=== PATIENT | female | born 1945 | race Caucasian/White ===

== ENCOUNTER 2022-06-09 05:23 | Inpatient (IN) | payer OTHER ==
[2022-06-05 17:52] LABS: APPEARANCE,SPUN,BODY FLUID CLEAR (CLEAR); BF APPEARANCE UNSPUN HAZY (CLEAR); BODY FLUID COLOR PINK (LT YELLOW); BODY FLUID TOTAL VOLUME 40 mL; LYMPHOCYTES, BODY FLUID 53 %; NEUTROPHIL, BODY FLUID 47 %; RBC, BODY FLUID 2261 /uL; SOURCE/TYPE ,BODY FLUID SYNOVIAL; WBC, BODY FLUID 266 /uL
[2022-06-05 17:53] LABS: BODY FLUID CRYSTALS NO CRYSTALS SEEN (None Seen)
[~2022-06-09] VITALS: Ht 149.9 cm; Wt 66.7 kg
[2022-06-09] MEDS ORDERED: CEFAZOLIN SOD 2 GM in D5W 50 ML IV ONE (07:00)
[2022-06-09] MEDS ORDERED: ACETAMINOPHEN I.V. 1000 MG 100 ML IV ONE (07:42)
[2022-06-09] MEDS ORDERED: HYDROmorphone 2 MG/ML VIAL IVP PRN (08:00)
[2022-06-09] MEDS ORDERED: HYDROmorphone 1 MG/ML INJ. CARTRIDGE IVP PRN ×4 (08:00→11:00)
[2022-06-09] MEDS ORDERED: ONDANSETRON HCL 4 MG/2 ML VIAL IVP PRN ×2 (08:00→11:45)
[2022-06-09] MEDS ORDERED: ETOD400T2 PO (09:00)
[2022-06-09] MEDS ORDERED: HYDR500C2 PO (09:00)
[2022-06-09] MEDS ORDERED: NEU300 PO (09:00)
[2022-06-09] MEDS ORDERED: ASPI-1393 PO (09:00)
[2022-06-09] MEDS ORDERED: LOVA20TA2 PO (09:00)
[2022-06-09] MEDS ORDERED: BETA1TAB20 PO (09:00)
[2022-06-09] MEDS ORDERED: VALS80TA2 PO (09:00)
[2022-06-09] MEDS ORDERED: BUPIVACAINE LIPOSOME/PF 266 MG/20 ML VIAL INFIL ONE (10:49)
[2022-06-09] MEDS ORDERED: LORATADINE 10 MG TABLET PO PRN (11:00)
[2022-06-09] MEDS ORDERED: oxyCODONE HCL 5 MG TABLET PO PRN ×2 (11:00)
[2022-06-09] MEDS ORDERED: traMADol HCL HCL 50 MG TABLET (ULTRAM) PO PRN (11:00)
[2022-06-09] MEDS ORDERED: ROCURONIUM BROMIDE 10 MG/ML (ZEMURON) ONE (11:44)
[2022-06-09] MEDS ORDERED: WATER FOR IRRIGATION,STERILE 1,000 ML IRRIG.SOLN IR ONE (11:44)
[2022-06-09] MEDS ORDERED: VANCOMYCIN HCL 1000 MG/VIAL IV ONE (11:44)
[2022-06-09] MEDS ORDERED: fentaNYL CITRATE/PF 100 MCG/2 ML AMP ONE (11:44)
[2022-06-09] MEDS ORDERED: ONDANSETRON HCL 4 MG/2 ML VIAL ONE (11:44)
[2022-06-09] MEDS ORDERED: TRANEXAMIC ACID 1,000 MG/10 ML VIAL ONE (11:44)
[2022-06-09] MEDS ORDERED: PROPOFOL 200MG/ 20ML VIAL (DIPRIVAN) IV ONE (11:44)
[2022-06-09] MEDS ORDERED: LR 1,000 ML IV.SOLN IV ONE (11:44)
[2022-06-09] MEDS ORDERED: NS 1000 ML IV.SOLN IV ONE (11:44)
[2022-06-09] MEDS ORDERED: DEXAMETHASONE SOD PHOSPHATE 4 MG/ML VIAL ONE (11:44)
[2022-06-09] MEDS ORDERED: SUCCINYLCHOLINE CHLORIDE 20 MG/ML(QUELICIN) ONE (11:44)
[2022-06-09] MEDS ORDERED: KETOROLAC TROMETHAMINE 30 MG VIAL ONE (11:44)
[2022-06-09] MEDS ORDERED: DESFLURANE 15 MIN GAS INH ONE (11:44)
[2022-06-09] MEDS ORDERED: LABETALOL 100 MG/ 20ML VIAL ONE (11:44)
[2022-06-09] MEDS ORDERED: NS IRRIG SOLN 1000 ML IR ONE (11:44)
[2022-06-09] MEDS ORDERED: METOCLOPRAMIDE HCL 10 MG/2 ML VIAL ONE (11:44)
[2022-06-09] MEDS ORDERED: HYDROmorphone 2 MG/ML VIAL ONE (11:44)
[2022-06-09] MEDS ORDERED: hydrALAZINE HCL 20 MG/ML VIAL ONE (11:44)
[2022-06-09] MEDS ORDERED: NS 100 ML BAG ONE (11:44)
[2022-06-09] MEDS ORDERED: LACTULOSE 20 GM/30 ML UDC PO PRN (11:45)
[2022-06-09] MEDS ORDERED: BISACODYL 10 MG/SUPPOSITORY RC PRN (11:45)
[2022-06-09] MEDS ORDERED: NALOXONE HCL 0.4 MG/ML AMP (NARCAN) IVP PRN ×3 (11:45)
[2022-06-09] MEDS ORDERED: METOCLOPRAMIDE HCL 10 MG/2 ML VIAL IVP PRN (11:45)
[2022-06-09] MEDS ORDERED: DIPHENHYDRAMINE HCL 25 MG CAPSULE PO PRN (11:45)
[2022-06-09] MEDS: KETOROLAC TROMETHAMINE 10 MG TABLET (TORADOL) PO SCH ×2 (14:00→23:25)
[2022-06-09] MEDS: ACETAMINOPHEN 500 MG TABLET PO SCH ×2 (14:00→23:24)
--- NOTE | 2022-06-09 15:17 | NUR ---
Admission Note Received patient from PACU sp left knee arthroplasty. AAOx4. bp124/78, hr67, t97.8, rr 18 O2 sat 98% room air. Polar pack in plcae, left heal elevated on 1 pillow. denies pain at this time. instructed use od incentive spirometer. Initial Plan of Care discussed-patient verbalized understanding.Oriented to room, call light, pain management and safety.
[2022-06-09 15:42] VITALS: BP_SYST 141
[2022-06-09] MEDS: ceFAZolin SODIUM 2 GM in D5W 50 ML IV SCH (17:16)
[2022-06-09 19:35] VITALS: BP_SYST 131
--- NOTE | 2022-06-09 19:42 | NUR ---
ROUNDS LATE ENTRY DUE TO PT CARE 1700- PHYSICAL THERAPIST AT THE BEDSIDE. AMBULATED 10 FEET. 1800- PATIENT COMFORTABLE AT THIS TIME 1920- BEDSIDE REPORT GIVEN TO VENESSA BARRON
[2022-06-09] MEDS: GABAPENTIN 300 MG CAPSULE PO SCH (21:02)
[2022-06-09] MEDS: HYDROmorphone 1 MG/ML INJ. CARTRIDGE IVP PRN (21:02)
[2022-06-09] MEDS: SENNOSIDES/DOCUSATE SODIUM 1 TAB TABLET(SENOKOT-S) PO SCH (21:02)
[2022-06-10] VITALS: BP_SYST 128
[2022-06-10] MEDS: HYDROmorphone 1 MG/ML INJ. CARTRIDGE IVP PRN (00:51)
[2022-06-10] MEDS: ceFAZolin SODIUM 2 GM in D5W 50 ML IV SCH ×2 (00:57→10:42)
[2022-06-10] MEDS: KETOROLAC TROMETHAMINE 10 MG TABLET (TORADOL) PO SCH (06:05)
[2022-06-10] MEDS: ACETAMINOPHEN 500 MG TABLET PO SCH ×2 (06:05→14:57)
[2022-06-10 07:43] LABS: BASOPHILS % (AUTO) 0.3 % (0.0-2.0); EOSINOPHILS % (AUTO) 0.6 % (0.0-4.0); HEMATOCRIT 24.8 % (36-48); HEMOGLOBIN 8.6 g/dL (12.0-16.0); LYMPHOCYTES # (AUTO) 0.9 K/uL (1.0-5.5); LYMPHOCYTES % (AUTO) 15.1 % (20.5-51.5); MEAN CORPUSCULAR HEMOGLOBIN 41 pg (27-31); MEAN CORPUSCULAR HGB CONC 35 % (32-36); MEAN CORPUSCULAR VOLUME 119 fL (79.0-98.0); MONOCYTES # (AUTO) 0.5 K/uL (0.0-1.0); MONOCYTES % (AUTO) 8.2 % (1.7-9.3); NEUTROPHILS # (AUTO) 4.5 K/uL (1.8-7.7); NEUTROPHILS % (AUTO) 75.8 % (40.0-70.0); PLATELET COUNT (AUTO) 380 K/uL (130-430); RED BLOOD CELL COUNT(AUTO) 2.09 MIL/uL (4.2-6.2); RED CELL DISTRIBUTION WIDTH 13.5 % (9.0-15.0); WHITE BLOOD COUNT (AUTO) 5.9 K/uL (4.8-10.8)
[2022-06-10 07:55] LABS: ALANINE AMINOTRANSFERASE 18 U/L (12-78); ALBUMIN 2.6 g/dL (3.4-4.8); ANION GAP 7 (5-15); ASPARTATE AMINOTRANSFERASE 26 U/L (10-37); CALCIUM 8.3 mg/dL (8.4-11.0); CHLORIDE 106 mmol/L (98-107); GLUCOSE 88 mg/dL (70-99); TOTAL BILIRUBIN 0.4 mg/dL (0.0-1.0); UREA NITROGEN, BLOOD 14 mg/dL (8-21)
[2022-06-10] MEDS ORDERED: APIX2.5T PO (08:23)
[2022-06-10] MEDS ORDERED: APIXABAN 2.5 MG TABLET PO SCH (09:00)
[2022-06-10] MEDS ORDERED: ATORVASTATIN 10 MG TABLET PO SCH (09:00)
[2022-06-10] MEDS ORDERED: LOSARTAN POTASSIUM 25 MG TABLET PO SCH (09:00)
[2022-06-10 09:24] VITALS: BP_SYST 131
[2022-06-10 09:27] VITALS: BP_SYST 129
[2022-06-10] MEDS: GABAPENTIN 300 MG CAPSULE PO SCH (10:14)
[2022-06-10] MEDS: SENNOSIDES/DOCUSATE SODIUM 1 TAB TABLET(SENOKOT-S) PO SCH (10:21)
[2022-06-10] MEDS ORDERED: CELECOXIB 200 MG CAPSULE PO SCH (11:00)
--- NOTE | 2022-06-10 14:20 | NUR ---
HCP/HOME HEALTH Spoke with Fredrick Blocker And Polisher from [facility] [phone] and informed him of the order for Home Health for Physical Therapy. He stated okay to send pt home once the MD Order is faxed to [facility] per Gael customer service manager here at [facility]. He stated home health will follow up with pt in 48 hours.
--- NOTE | 2022-06-10 15:24 | NUR ---
PHYSICAL THERAPY CO-SIGN The Physical Therapy Progress Notes documented by Technology Risk Intern have been reviewed. Reviewed/Co-Signed by: Neftaly Pierre Documentation Done by:NISHA WATERMAN Addendum: 06/10/22 at 1524 by Neftaly Pierre PT Amended: Links added.
--- NOTE | 2022-06-10 15:30 | NUR ---
CM: reveived call from roya/Jus # [phone], c/o unable to get in touch with CM at [facility] since this am. Pt. is dc home with FWW a which Breezy, yesterday CM said , would get one sent to the room, and home health /PT info. So far , he has not received any info. I called the after hour # and spoke with Aixa, managed care manager/[facility] # [phone] , informed of the issues above. Said the home health is arranged with # [phone], FWW provided from [facility] and [facility] will replace it by today . The FWW order faxed to #[phone] igor Tang Addendum: 06/10/22 at 1555 by Alexis Fitzgerald RN Correct phone # Domenica # [phone], I informed set up and FWW is at bedside. Son does not want to wait for [facility] to deliver FWW late this pm. Addendum: 06/10/22 at 1622 by Alexis Fitzgerald RN Called back from [facility]# [phone]: the DME co is trying to meet the delivery time by 6 pm. Otherwise, they will delivery the FWW to director [facility] dept on Monday 06/12.
[2022-06-10 16:30] VITALS: BP_SYST 122
--- NOTE | 2022-06-10 17:19 | NUR ---
D/C Patient Patient given medication reconciliation form and D/C instructions. Exit Care provided. Patient verbalized understanding. MD discussed with patient the results and treatment provided. Patient in stable condition, ID band removed. IV catheter removed, intact and dressing applied, no active bleeding. Patient educated on pain management. All belongings sent with patient. Patient left with FWW. Patient left floor via wheelchair to private vehicle in no distress.
--- NOTE | 2022-06-22 13:53 | NUR ---
Store Team Leader HOISTING ENGINE OPERATOR made a post discharge follow up phone call to pt., but spoke to son Jus who stated his mom Torri is doing well. She was discharged on 06/10 but due to fainting at home the morning of 06/11 was taken via ambulance to [facility] for one day. Family left not knowing what her Dx. was. Jus stated he was so happy with the staff at [facility] and Dr. Hickey and his associate and thanked HOISTING ENGINE OPERATOR. Torri is getting home PT and will be getting outpt. PT , has had a follow up apt. with Dr. Hickey and will have a follow up apt. with her PCP.
== END 2022-06-10 17:15 | disposition home health service (06) | DRG 467 ==
LOC: SDS 05:23 → SMU 05:24 → EDSTATUS 07:30 → SDS 07:35 → SMU 15:35
PROVIDERS: ADMIT Student in an Organized Health Care Education/Training Program; ATTEND Student in an Organized Health Care Education/Training Program
PROC: 0SRD0J9 Replacement of Left Knee Joint with Synthetic Substitute, Cemented, Open Approach (ICD-10-PCS; 2022-06-09)
PROC: 0QBH0ZZ Excision of Left Tibia, Open Approach (ICD-10-PCS; 2022-06-09)
PROC: 0SPD0JZ Removal of Synthetic Substitute from Left Knee Joint, Open Approach (ICD-10-PCS; principal; 2022-06-09 07:51)
DX: T84.093A Other mechanical complication of internal left knee prosthesis, initial encounter (principal); E44.1 Mild protein-calorie malnutrition; Y83.8 Other surgical procedures as the cause of abnormal reaction of the patient, or of later complication, without mention of misadventure at the time of the procedure; Z20.822 Contact with and (suspected) exposure to COVID-19; Y92.89 Other specified places as the place of occurrence of the external cause; Z68.29 Body mass index [BMI] 29.0-29.9, adult
CPT/HCPCS: 36415; 73560-TC; 80053; 82947; 84157; 85025; 86886; 86900; 86901; 86920; 87070; 87070-TC; 87081; 87101; 87116; 88305; 89051-TC; 89060-TC; 96379; 97110-GP; 97116-GP; 97163-GP; 97530-GP; A4649; C1713; C1776; C9290; J0131; J0330; J0360; J0690; J1100; J1170; J1885; J2405; J2704; J2765; J3010; J3370; J3490; J7030; J7060; J7120